=== PATIENT | female | born 1970 | race Caucasian/White ===

== ENCOUNTER 2017-10-17 13:54 | Emergency (ER) | payer SELFPAY ==
[~2017-10-17] VITALS: Ht 157.5 cm; Wt 52.2 kg
[2017-10-17] MEDS ORDERED: FAMOTIDINE 20 MG/2 ML VIAL IV STA (14:09)
[2017-10-17] MEDS ORDERED: METHYLPREDNISOLONE SOD SUCC 125 MG/2ML VIAL IV ONE (14:15)
[2017-10-17] MEDS ORDERED: DIPHENHYDRAMINE HCL INJ 50 MG/ML VIAL IV ONE (14:15)
== END 2017-10-17 16:48 | disposition home or self-care (01) ==
LOC: ER 13:54
DX: L50.0 Allergic urticaria (principal); T78.3XXA Angioneurotic edema, initial encounter
CPT/HCPCS: 96374; 99283; J1200; J2930